=== PATIENT | male | born 2000 | race Two or more races ===

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

== ENCOUNTER 2022-10-22 18:11 | Emergency (ER) | payer SELFPAY ==
[~2022-10-22] VITALS: Ht 188 cm; Wt 136.0 kg
[2022-10-22 18:45] LABS: Urine WBC None Seen /hpf (0 - 3)
[2022-10-22 19:40] LABS: Urine Bacteria NONE SEEN /hpf (None Seen); Urine Blood Negative /uL (Negative); Urine Mucus FEW (None Seen)
[2022-10-22] MEDS ORDERED: IBUP800T26 PO (22:16)
[2022-10-22 22:22] VITALS: BP 113/57
== END 2022-10-22 22:23 | disposition home or self-care (01) ==
LOC: ER 18:12
DX: S39.011A Strain of muscle, fascia and tendon of abdomen, initial encounter (principal); X58.XXXA Exposure to other specified factors, initial encounter; Y93.89 Activity, other specified; Y92.89 Other specified places as the place of occurrence of the external cause; Y99.8 Other external cause status
CPT/HCPCS: 76881; 81001

== ENCOUNTER 2024-07-24 00:10 | Emergency (ER) | payer SELFPAY ==
[~2024-07-24] VITALS: Ht 188 cm; Wt 146.9 kg
[~2024-07-24 00:10] MED LIST: IBUP-1455 PO
[2024-07-24 00:22] VITALS: BP 129/70; PULSE 115; RESP 18; O2SAT 98
[2024-07-24] MEDS ORDERED: TETANUS-DIPTH-ACEL PERTUSSIS 0.5ML SYR Tdap IM ONE (01:30)
[2024-07-24] MEDS ORDERED: BACITRACIN TOP OINT 1 UD PKG TOP ONE (02:15)
== END 2024-07-24 02:45 | disposition home or self-care (01) ==
LOC: ER 00:10
DX: S61.211A Laceration without foreign body of left index finger without damage to nail, initial encounter (principal); W45.8XXA Other foreign body or object entering through skin, initial encounter; Y93.89 Activity, other specified; Y92.89 Other specified places as the place of occurrence of the external cause; Y99.8 Other external cause status
CPT/HCPCS: 90715